=== PATIENT | female | born 1995 | race Caucasian/White ===

== ENCOUNTER 2017-03-20 22:35 | Emergency (ER) | payer MEDICAID ==
[~2017-03-20] VITALS: Ht 157.5 cm; Wt 64.9 kg
[2017-03-20 22:50] LABS: URINE BILIRUBIN NEGATIVE (Negative); URINE BLOOD TRACE (Negative); URINE CLARITY CLEAR; URINE COLOR YELLOW; URINE GLUCOSE-RANDOM NEGATIVE (Negative); URINE KETONES NEGATIVE (Negative); URINE LEUKOCYTES-REFLEX NEGATIVE (Negative); URINE NITRITE-REFLEX NEGATIVE (Negative); URINE PROTEIN NEGATIVE (Negative); URINE UROBILINOGEN 0.2 E.U./dl (0.2-1.0)
[2017-03-20] MEDS ORDERED: PRENATA CHEWAB1 EACH PO (22:55)
[2017-03-20 23:04] LABS: ABSOLUTE BASOPHILS 0.1 thou/uL (0.0-0.2); ABSOLUTE EOSINOPHILS 0.4 thou/uL (0.0-0.7); ABSOLUTE LYMPHOCYTES 3.6 thou/uL (0.8-5.3); ABSOLUTE MONOCYTES 1.5 thou/uL (0.0-1.2); ABSOLUTE NEUTROPHILS 8.3 thou/uL (1.6-8.1); BASOPHILS 0.9 %; EOSINOPHILS 2.7 %; HEMATOCRIT 37.6 % (37.0-47.0); HEMOGLOBIN 12.5 gm/dL (12.0-15.0); LYMPHOCYTES 26.2 %; MCH 29.9 pg (26.0-34.0); MCHC 33.3 g/dL (28.0-37.0); MCV 89.8 fL (80.0-100.0); MONOCYTES 10.6 %; MPV 8.5 fl. (7.2-11.1); NUCLEATED RBCS 0 /100WBC; PLATELET COUNT* 352 thou/uL (150-400); POLYS 59.6 %; RBC 4.18 mil/uL (4.20-5.00); RDW-CV 14.1 % (10.5-14.5); WBC 13.9 thou/uL (4.0-11.0)
[2017-03-20 23:23] LABS: POTASSIUM 3.8 mmol/L (3.5-5.1)
[2017-03-20 23:24] LABS: CALCIUM 9.2 mg/dL (8.5-10.1); CREATININE 0.8 mg/dL (0.6-1.3)
[2017-03-21] VITALS: BP 112/67
== END 2017-03-21 00:01 | disposition home or self-care (01) ==
LOC: M.ERS 22:35
PROVIDERS: Nurse Practitioner Family
DX: O20.0 Threatened abortion (principal); Z3A.08 8 weeks gestation of pregnancy

== ENCOUNTER 2017-03-26 21:55 | Emergency (ER) | payer MEDICAID ==
[~2017-03-26] VITALS: Ht 157.5 cm; Wt 57.1 kg
[~2017-03-26 21:55] MED LIST: PRENATA CHEWAB1 EACH PO
[2017-03-26 22:28] LABS: URINE BILIRUBIN NEGATIVE (Negative); URINE BLOOD 3+ (Negative); URINE CLARITY CLEAR; URINE COLOR YELLOW; URINE GLUCOSE-RANDOM NEGATIVE (Negative); URINE KETONES NEGATIVE (Negative); URINE LEUKOCYTES-REFLEX NEGATIVE (Negative); URINE NITRITE-REFLEX NEGATIVE (Negative); URINE PROTEIN NEGATIVE (Negative); URINE SPECIFIC GRAVITY <= 1.005 (1.005-1.030); URINE UROBILINOGEN 0.2 E.U./dl (0.2-1.0)
[2017-03-26 22:37] LABS: CASTS None Seen /LPF (None Seen); MUCUS 0-3 Light strn/LPF (None Seen); SQUAMOUS 4-10 Moderate /LPF (0-3); URINE WBC-REFLEX None Seen /HPF (0-5)
[2017-03-26 22:38] LABS: CRYSTALS None Seen /LPF (None Seen)
[2017-03-27 00:01] VITALS: BP 126/60
== END 2017-03-27 00:02 | disposition home or self-care (01) ==
LOC: M.ERS 21:55
PROVIDERS: Emergency Medicine
DX: O20.0 Threatened abortion (principal); Z3A.01 Less than 8 weeks gestation of pregnancy

== ENCOUNTER 2017-05-27 16:59 | Emergency (ER) | payer MEDICAID ==
[~2017-05-27] VITALS: Ht 157.5 cm; Wt 67.1 kg
[2017-05-27] MEDS ORDERED: HYDROXYZINE HCL25 M1 PO (17:31)
[2017-05-27] MEDS ORDERED: TRIAMCINOLONE A80 G2 TOP (17:31)
[2017-05-27 17:38] VITALS: BP 137/88
== END 2017-05-27 17:38 | disposition home or self-care (01) ==
LOC: M.ERS 16:59
DX: S60.562A Insect bite (nonvenomous) of left hand, initial encounter (principal); S60.561A Insect bite (nonvenomous) of right hand, initial encounter; S70.361A Insect bite (nonvenomous), right thigh, initial encounter; W57.XXXA Bitten or stung by nonvenomous insect and other nonvenomous arthropods, initial encounter; Y93.89 Activity, other specified; Y92.89 Other specified places as the place of occurrence of the external cause; Y99.8 Other external cause status

== ENCOUNTER 2017-07-02 21:28 | Emergency (ER) | payer OTHER, MEDICAID ==
[~2017-07-02] VITALS: Ht 157.5 cm; Wt 68.0 kg
[~2017-07-02 21:28] MED LIST changes: +HYDROXYZINE HCL25 M1 PO; +TRIAMCINOLONE A80 G2 TOP
[2017-07-02 21:52] LABS: ABSOLUTE BASOPHILS 0.1 thou/uL (0.0-0.2); ABSOLUTE EOSINOPHILS 0.3 thou/uL (0.0-0.7); ABSOLUTE MONOCYTES 1.1 thou/uL (0.0-1.2); ABSOLUTE NEUTROPHILS 5.4 thou/uL (1.6-8.1); BASOPHILS 0.7 %; EOSINOPHILS 3.3 %; HEMATOCRIT 38.5 % (37.0-47.0); HEMOGLOBIN 13.1 gm/dL (12.0-15.0); LYMPHOCYTES 30.3 %; MCH 30.6 pg (26.0-34.0); MCV 89.9 fL (80.0-100.0); MPV 9.1 fl. (7.2-11.1); NUCLEATED RBCS 0 /100WBC; PLATELET COUNT* 248 thou/uL (150-400); POLYS 54.7 %; RBC 4.29 mil/uL (4.20-5.00); RDW-CV 13.3 % (10.5-14.5); WBC 9.9 thou/uL (4.0-11.0)
[2017-07-02 22:07] LABS: CALCIUM 8.7 mg/dL (8.5-10.1); CREATININE 0.9 mg/dL (0.6-1.3); POTASSIUM 3.6 mmol/L (3.5-5.1)
[2017-07-02 22:11] LABS: ALBUMIN 3.9 g/dL (3.4-5.0); TOTAL BILIRUBIN 0.1 mg/dL (<0.1-1.0); TOTAL PROTEIN 7.4 g/dL (6.4-8.2)
[2017-07-02 22:59] LABS: URINE BILIRUBIN NEGATIVE (Negative); URINE BLOOD NEGATIVE (Negative); URINE CLARITY CLEAR; URINE COLOR YELLOW; URINE GLUCOSE-RANDOM NEGATIVE (Negative); URINE KETONES NEGATIVE (Negative); URINE LEUKOCYTES-REFLEX NEGATIVE (Negative); URINE NITRITE-REFLEX NEGATIVE (Negative); URINE PROTEIN NEGATIVE (Negative); URINE SPECIFIC GRAVITY >= 1.030 (1.005-1.030); URINE UROBILINOGEN 0.2 E.U./dl (0.2-1.0)
[2017-07-02] MEDS ORDERED: BENTYL 20 MG TA20 M1 PO (23:09)
[2017-07-02 23:31] VITALS: BP 118/68
== END 2017-07-02 23:32 | disposition home or self-care (01) ==
LOC: M.ERS 21:28
PROVIDERS: Family Medicine
DX: R10.2 Pelvic and perineal pain (principal); Z90.89 Acquired absence of other organs

== ENCOUNTER 2017-11-29 11:16 | Emergency (ER) | payer OTHER, MEDICAID ==
[~2017-11-29] VITALS: Ht 157.5 cm; Wt 68.0 kg
[~2017-11-29 11:16] MED LIST changes: +BENTYL 20 MG TA20 M1 PO
[2017-11-29 11:58] LABS: ABSOLUTE BASOPHILS 0.1 thou/uL (0.0-0.2); ABSOLUTE EOSINOPHILS 0.3 thou/uL (0.0-0.7); ABSOLUTE LYMPHOCYTES 1.5 thou/uL (0.8-5.3); ABSOLUTE MONOCYTES 1.1 thou/uL (0.0-1.2); ABSOLUTE NEUTROPHILS 9.9 thou/uL (1.6-8.1); BASOPHILS 0.5 %; EOSINOPHILS 2.1 %; HEMATOCRIT 39.7 % (37.0-47.0); HEMOGLOBIN 13.3 gm/dL (12.0-15.0); LYMPHOCYTES 11.4 %; MCH 29.8 pg (26.0-34.0); MCHC 33.5 g/dL (28.0-37.0); MONOCYTES 8.7 %; MPV 9.3 fl. (7.2-11.1); NUCLEATED RBCS 0 /100WBC; PLATELET COUNT* 260 thou/uL (150-400); POLYS 77.3 %; RBC 4.45 mil/uL (4.20-5.00); RDW-CV 13.7 % (10.5-14.5); WBC 12.8 thou/uL (4.0-11.0)
[2017-11-29 12:07] LABS: ANION GAP 4 mmol/L (7-16); BUN 15 mg/dL (7-18); CALCIUM 8.6 mg/dL (8.5-10.1); CHLORIDE 104 mmol/L (98-107); CO2 27 mmol/L (21-32); CREATININE 0.8 mg/dL (0.6-1.3); GLUCOSE 91 mg/dL (70-99); POTASSIUM 3.7 mmol/L (3.5-5.1); SODIUM 135 mmol/L (136-145)
[2017-11-29 12:18] LABS: ALKALINE PHOSPHATASE 62 U/L (46-116); LIPASE 93 U/L (73-393); NT-PRO BRAIN NAT PEPTIDE 34 pg/mL (<300); SGOT 12 U/L (15-37); SGPT 17 U/L (30-65); TOTAL BILIRUBIN 0.3 mg/dL (<0.1-1.0); TOTAL PROTEIN 7.7 g/dL (6.4-8.2); TROPONIN-I LEVEL <0.06 ng/mL (<0.06)
[2017-11-29] MEDS ORDERED: ZPAK PO (12:41)
[2017-11-29] MEDS ORDERED: TESSALON PERLE100 MG PO (12:41)
[2017-11-29] MEDS ORDERED: MEDROLDOSEPACK PO (12:41)
[2017-11-29] MEDS ORDERED: VENTOLIN HFA 1818 GM INH (12:42)
[2017-11-29] MEDS ORDERED: ONDANSETRON HCL4 M2 PO (12:48)
[2017-11-29 12:53] VITALS: BP 114/70
--- NOTE | 2017-11-30 13:57 | EKG ---
[place] [address] ELECTROCARDIOGRAM REPORT Name: ANNY LARA Room: [facility]#: [id number] Admission: 11/29/17 Attend Phys: Discharge: 11/29/17 Date of : [birth year] Report #: [id number] THIS REPORT FOR: //name// [facility] ED Test Date: 2017-11-29 Test Time: 11:47:21 Pat Name: ANNY LARA Department: Room: Gender: F Staff Appraiser: JARVIS : 1995 Requested By: Camille Herman Order Number: [id number] MD: Geovany Govea Measurements Intervals [place] Rate: 95 P: 2 AR: 169 QRS: -70 QRSD: 103 T: 4 QT: 372 QTc: 468 Interpretive Statements Sinus rhythm LAD, consider left anterior fascicular block Low voltage, precordial leads No previous ECG available for comparison Electronically Signed On 11-30-2017 13:56:46 CDT by Geovany Govea [email or web address] <ELECTRONICALLY SIGNED> By: Mahi Govea MD, [facility] 11/30/17 1356 [id number] [id number] Mahi Govea MD, [facility] /EPI
== END 2017-11-29 12:54 | disposition home or self-care (01) ==
LOC: M.ERS 11:16
PROVIDERS: Nurse Practitioner Family
DX: J20.9 Acute bronchitis, unspecified (principal); R11.2 Nausea with vomiting, unspecified; F17.200 Nicotine dependence, unspecified, uncomplicated

== ENCOUNTER 2017-12-11 20:55 | Emergency (ER) | payer OTHER, MEDICAID ==
[~2017-12-11] VITALS: Ht 157.5 cm; Wt 68.0 kg
[~2017-12-11 20:55] MED LIST changes: +MEDROLDOSEPACK PO; +ONDANSETRON HCL4 M2 PO; +TESSALON PERLE100 MG PO; +VENTOLIN HFA 1818 GM INH; +ZPAK PO
[2017-12-11] MEDS ORDERED: IBUPROFEN 600600 M1 PO (21:04)
[2017-12-11] MEDS ORDERED: TRAMADOL 50 MG50 MG PO (22:32)
[2017-12-11] MEDS ORDERED: NABUMETONE 750750 M1 PO (22:32)
[2017-12-11] MEDS ORDERED: ONDANSETRON HCL4 M2 PO (22:41)
[2017-12-11 22:52] VITALS: BP 124/76
== END 2017-12-11 22:54 | disposition home or self-care (01) ==
LOC: M.ERS 20:55
DX: M25.562 Pain in left knee (principal); F17.210 Nicotine dependence, cigarettes, uncomplicated